=== PATIENT | male | born 1950 | race Caucasian/White ===

== ENCOUNTER 2018-08-12 00:25 | Inpatient (IN) | payer MEDICARE, OTHER ==
[2018-08-11 14:27] LABS: PLATELET COUNT, AUTOMATED 214 K/uL (150-450)
[~2018-08-12] VITALS: Ht 193 cm; Wt 121.1 kg
[2018-08-12] VITALS (14 sets, daily range): BP systolic 113–157; BP diastolic 59–85
[~2018-08-12 00:25] MED LIST: CHOL378P6 PO; HYDR-2966 PO; LEVO125T77 PO; METO25TA93 PO; ceFAZolin(*) 1 GM VIAL 3 GM in NS(*) 0.9% 100 ML BAG 100 ML IVPB ONE
[2018-08-12] MEDS ORDERED: PREGABALIN 150 MG CAPSULE PO ONE (08:25)
[2018-08-12] MEDS ORDERED: NORMOSOL R SOLN(*) 1000 ML BAG 1,000 ML IV PRN (08:25)
[2018-08-12] MEDS ORDERED: ceFAZolin(*) 2GM/D5W 50ML 50 ML IVPB ONE (08:25)
[2018-08-12] MEDS ORDERED: LIDOCAINE/SOD BICARB 8.4% SYR ID ONE (08:25)
[2018-08-12] MEDS ORDERED: MIDAZOLAM 2 MG/2 ML VIAL IVP PRN (08:25)
[2018-08-12] MEDS ORDERED: FAMOTIDINE 20 MG TAB PO ONE (08:25)
[2018-08-12] MEDS ORDERED: ceFAZolin(*) 1 GM VIAL 3 GM in NS(*) 0.9% 100 ML BAG 100 ML IVPB ONE (08:25)
[2018-08-12] MEDS ORDERED: ACETAMINOPHEN 500 MG TAB PO ONE (08:25)
[2018-08-12] MEDS ORDERED: PROPOFOL(*)1000 MG/100 ML VIAL 100 ML ONE (08:34)
[2018-08-12] MEDS ORDERED: ACETAMINOPHEN(*)1000 MG/100 ML 100 ML IVPB ONE (08:34)
[2018-08-12] MEDS ORDERED: LIDOCAINE MPF 1% 5 ML VIAL ONE (09:40)
[2018-08-12] MEDS ORDERED: PROPOFOL EMUL(*) 10MG/ML 20 ML 40 ML ONE (09:40)
[2018-08-12] MEDS ORDERED: ONDANSETRON 4 MG/2 ML VIAL ONE (09:40)
[2018-08-12] MEDS ORDERED: METOCLOPRAMIDE 10 MG/2 ML SDV ONE (09:40)
[2018-08-12] MEDS ORDERED: DEXAMETHASONE SOD 4 MG/ML VIAL ONE (09:43)
[2018-08-12] MEDS ORDERED: SUCCINYLCHOL CHL 200MG/10ML VL ONE (09:43)
[2018-08-12] MEDS ORDERED: fentaNYL CITR 100 MCG/2 ML AMP ONE ×3 (09:44→12:48)
[2018-08-12] MEDS ORDERED: PHENYLEPHRINE 10 MG/1 ML VIAL ONE (10:36)
[2018-08-12] MEDS ORDERED: NS(*) 0.9% 100 ML BAG 100 ML ONE (11:10)
--- NOTE | 2018-08-12 11:59 | RADIOLOGY IMAGING REPORT ---
FACILITY: [facility] PATIENT NAME: Jed Hartley : 1950 MR: [id number] V: [id number] EXAM DATE: ORDERING PHYSICIAN: JANETH DENTON TECHNOLOGIST: Location: [facility] Patient: Jed Hartley : 1950 Visit/Account:[id number] Date of Sevice: 08/12/2018 CERVICAL SPINE 1 VIEW Intraoperative films (two lateral films) FINDINGS: Study demonstrates a surgical probe seen along the inferior anterior endplate of C5. Anterior disc b ridging disc osteophyte seen throughout the cervical spine. Vertebral bodies well-maintained with re spect to height. Prosthetic disc placed at the C5-6 level. IMPRESSION: 1. Intraoperative films as described. Report Dictated By: Master Branch MD at 08/12/2018 11:53 AM Report E-Signed By: Master Branch MD at 08/12/2018 11:55 AM WSN:[email or web address]
[2018-08-12] MEDS ORDERED: NALOXONE HCL 0.4 MG/ML VIAL ONE (12:04)
[2018-08-12] MEDS ORDERED: MAGNESIUM HYDROXIDE* 30ML UDCP PO PRN (12:50)
[2018-08-12] MEDS ORDERED: FLUSH 10 ML SYR IVP PRN (12:50)
[2018-08-12] MEDS ORDERED: HYDROmorphone HCL 2 MG/ML SDV IVP PRN (12:50)
[2018-08-12] MEDS ORDERED: ACETAMINOPHEN 500 MG TAB PO PRN (12:50)
[2018-08-12] MEDS ORDERED: ONDANSETRON 4 MG/2 ML VIAL IVP PRN (12:50)
[2018-08-12] MEDS ORDERED: LR(*) 1000 ML BAG 1,000 ML IV PRN (12:50)
[2018-08-12] MEDS ORDERED: diphenhydrAMINE 25 MG CAP PO PRN (12:50)
[2018-08-12] MEDS ORDERED: BENZOCAINE/MENTHOL 1 EACH LOZG PO PRN (12:50)
[2018-08-12] MEDS ORDERED: BISACODYL 10 MG SUPP PR PRN (12:50)
[2018-08-12] MEDS ORDERED: oxyCODONE HCL 5 MG CAP PO PRN (12:50)
[2018-08-12] MEDS ORDERED: ACETAMINOPHEN(*)1000 MG/100 ML 100 ML IVPB PRN (12:50)
[2018-08-12] MEDS ORDERED: DIAZEPAM 5 MG TAB PO PRN (12:50)
--- NOTE | 2018-08-12 14:32 | Hospitalist Consultation ---
History of Present Illness Requesting Physician Dr. Hendrix Reason for Consult Medical Management Chief Complaint s/p cervical fusion History of Present Illness He was admitted s/p cervical fusion. It is reported the surgery went well and without complication. History Problems: (1) Hypertension Status: Chronic (2) Hypothyroidism Status: Chronic Home Meds Reported Medications Levothyroxine Sodium (SYNTHROID) 125 Mcg Tablet, 1 TAB PO MON, THUR 08/07/18 Cholestyramine (With Sugar) (CHOLESTYRAMINE POWDER) 378 Gm Powder, 378 GM PO DAILY 08/06/18 Metoprolol Tartrate (METOPROLOL TARTRATE) 25 Mg Tablet, 2 TAB PO BID, TAB 08/06/18 Hydrochlorothiazide (HYDROCHLOROTHIAZIDE) 25 Mg Tablet, 1 TAB PO QDAY, TAB 08/06/18 Levothyroxine Sodium (SYNTHROID) 125 Mcg Tablet, 2 TAB PO TWFSS 08/06/18 Allergies: Coded Allergies: NSAIDS (Non-Steroidal Anti-Inflamma (Verified Allergy, Intermediate, BREAKS OUT IN HIVES, 08/12/18) aspirin (Verified Allergy, Intermediate, HIVES, 08/12/18) Patient History: FH: alcoholism MOTHER, FH: lung cancer FATHER, Hx Smoking: Yes (1/2PPD X 10 YRS, QUIT 42 YRS AGO) Smoking Status: Former Smoker Caffeine Intake: Soda Caffeine/Cups Per Day: 1 WEEKLY Hx Alcohol Use: Yes Hx Substance Use Disorder: No Social Drug Use: Never History of IV Drug Use: No Review of Systems All Systems Reviewed/Normal: Yes, Except as Noted Exam Vital Signs Vital Signs Date Time Temp Pulse Resp B/P (MAP) Pulse Ox O2 Delivery O2 Flow Rate FiO2 08/12/18 14:07 84 08/12/18 14:02 Nasal Cannula 2.0 08/12/18 14:00 60 153/80 (104) 08/12/18 13:41 97.8 16 General Appearance: Alert, Awake, No Acute Distress, Afebrile Neuro: No Gross deficits Cardiovascular: Regular Rate and Rhythm Respiratory: No Respiratory Distress, Clear to Auscultation Psych: Alert & Oriented X3, Appropriate Mood & Affect Medical Decision Making Data Points Result Diagram: 08/11/18 5325 Assessment and Plan Problems: (1) S/P cervical spinal fusion Status: Acute Assessment & Plan: Followed by Dr. Hendrix (2) Hypertension Status: Chronic Assessment & Plan: He is on chronic treatment with Metoprolol and Hydrochlorothiazide. The metoprolol has been restarted with hold parameters. (3) Hypothyroidism Status: Chronic Assessment & Plan: He is on chronic treatment with Levothyroxine. Venous Thromboembolism Antithrombotics Is Pt On Any Antithrombotics?: No Exam Sepsis Risk: No Definite Risk Problem Qualifiers (1) Hypertension: Hypertension type: essential hypertension Qualified Codes: I10 - Essential (primary) hypertension JASON ANDERSON Aug 12, 2018 14:32
[2018-08-12] MEDS: CHOLESTYRAMINE 4 GM POWD PO SCH (16:22)
[2018-08-12] MEDS: ceFAZolin 3 GM in NS 0.9% 100 ML BAG IVPB SCH (17:56)
[2018-08-12] MEDS: APAP/HYDROCODONE 325/5 TAB PO PRN ×3 (18:08→23:35)
[2018-08-12] MEDS: METOPROLOL TART 50 MG TAB PO SCH (20:48)
[2018-08-12] MEDS: DOCUSATE SODIUM 100 MG CAP PO SCH (20:48)
[2018-08-12] MEDS ORDERED: LEVOTHYROXINE SOD 0.125 MG TAB PO SCH (21:00)
[2018-08-13] MEDS: ceFAZolin 3 GM in NS 0.9% 100 ML BAG IVPB SCH (02:24)
[2018-08-13 03:21] VITALS: BP 140/77
[2018-08-13] MEDS ORDERED: LEVOTHYROXINE SOD 0.125 MG TAB PO SCH (06:00)
--- NOTE | 2018-08-13 07:36 | OPERATIVE REPORT 1 ---
EVENT DATE: August 12, 2018 SURGEON: Shon Hendrix M.D. ANESTHESIOLOGIST: Vlad Sanon M.D. ANESTHESIA: General endotracheal. LIVESTOCK EXHIBITOR: BENNETT Martino, BESSEMER BOTTOM MAKER PREOPERATIVE DIAGNOSIS Right C6 radiculopathy with right C5-C6 foraminal narrowing. POSTOPERATIVE DIAGNOSIS Right C6 radiculopathy with right C5-6 foraminal narrowing. PROCEDURE PERFORMED C5-C6 anterior cervical diskectomy and fusion. IV FLUIDS 1300 cc. ESTIMATED BLOOD LOSS 30 cc. IMPLANTS USED 1. 8 mm 6-degree lordotic size medium titanium interbody implant from [employer]. 2. 3.5 mm x 14 mm fixation screws from [employer]. SPECIMENS None. DRAINS 10- [place] round Mio-Huerta drain through the neck. COMPLICATIONS None. DISPOSITION Post-Anesthesia Care Unit. INDICATIONS FOR SURGERY Mr. Hartley is a 67-year-old gentleman who presented to my clinic with right sided C6 distribution radicular symptoms. His physical examination was significant for a positive Spurling's maneuver to the right, reproducing symptoms in a C6 nerve root distribution. Muscle strength was decreased in the right biceps at 4+/5 compared to 5/5 on the opposite side. Light touch sensation was subjectively diminished in the thumb of the right hand. Deep tendon reflexes were absent at the right biceps, 1+ at the left biceps and 1+ at bilateral triceps. Imaging studies showed multilevel degenerative disk disease with osteophyte formation, anterior and posterior, as well as disk osteophyte formation causing significant narrowing of the C6 foramen on the right side. Mr. Hartley did not have any improvement with physical therapy, injections or other nonoperative care and was ultimately offered a C5-C6 anterior cervical diskectomy and fusion. He wished to proceed. Prior to surgery, I explained in detail to the patient the possible risks of surgery. These risks include bleeding, infection, damage to surrounding structures, damage to the superior or recurrent laryngeal nerve, damage to the esophagus or trachea with possible need for tube feedings also possible. Other risks include damage to nerve roots, spinal cord, need for further surgery, failure of fusion, , blindness, sexual dysfunction, autonomic nervous system dysfunction and other unforeseen medical and surgical complications. An understanding that spinal surgery is more predictive at improving extremity discomfort than axial spine pain was stressed. DESCRIPTION OF PROCEDURE On the day of surgery, the patient was met in the preoperative hold area and all questions were answered. A final time-out was undertaken by members of the operating team to confirm correct patient, correct levels and correct surgery. The patient was positioned int he supine position on a standard OR bed. All bony protuberances were well padded in the standard fashion. Care was taken to maintain appropriate perfusion pressure during anesthesia. Preoperative antibiotics were administered according to the appropriate timing schedule. At the conclusion of the procedure, sponge and needle counts were correct x2. The patient was prepped and draped in the standard sterile orthopedic fashion. A transverse incision was made over the left side of the anterior cervical spine. Sharp dissection was carried out down to the platysma, which was divided. Finger was used to palpate the carotid pulse and the medial border of the sternocleidomastoid. Finger dissection was carried out medial to the sternocleidomastoid and the carotid sheath coming down on the anterior aspect of the cervical spine. A lateral radiograph was obtained to confirm appropriate spinal level. Soft tissue was then elevated off the anterior cervical spine in a subperiosteal manner including the longus colli muscles. A self-retaining rectractor was placed beneath the longus colli muscles and distracted at the C6- C7 disk space. A microscope was brought into the field. A #15 blade was used to incise the anterior annulus of the C5-C6 disk. Progressively, smaller curettes were then used as well as pituitary rongeurs and Kerrison rongeurs to perform a diskectomy from ventral to dorsal. Once we encountered the posterior annulus and posterior longitudinal ligament, a small forward angle curette was used to tease through those fibers. #1 and #2 Kerrisons were then used to remove the posterior longitudinal ligament and posterior annulus. A Cloward tower hand was placed in the disk space and distracted. There was no change in neurophysiologic monitoring. High speed bur was used to take down the posterior osteophyte on the inferior aspect of the C5 vertebrae. A nerve hook was used to check for adequate decompression of the spinal cord behind the vertebral bodies and adequate decompression of the neural elements out the foramina. Once this was complete and the decompression was satisfactory attention was then turned to the fusion. The end plates of the vertebral bodies above and below the interspace were feathered with a high speed bur. This was to promote bleeding across both bony surfaces. An 8 mm 6-degree lordotic rasp was then placed in the interspace and found to have an excellent fit. The wound was then irrigated with copious sterile saline solution and an 8 mm 6-degree lordotic size medium implant was chosen. This was inserted into the disk space and countersunk about 0.5 mm. the PressFit was excellent. The awl was then used through the integrated holes in the device to puncture the end plates and allow for screw placement. 3.5 mm x 14 mm screws were placed through the device and into the C5 and C6 vertebrae. Excellent purchase was acquired. A lateral radiograph was obtained that confirmed appropriate placement of the implant. The wound was irrigated with sterile saline solution and closed in layers using interrupted sutures for the platysma, inverted interrupted sutures for the subcutaneous tissue and running subcuticular skin stitch. Sponge and needle counts were correct x2. A drain was left deep to the platysma. POSTOPERATIVE CARE PLAN Mr. Hartley will remain in the hospital overnight. He will have his drain removed in the morning and be discharged home. He will follow up with me in two weeks for wound check and examination. CIARA
[2018-08-13 08:05] VITALS: BP 125/61
[2018-08-13] MEDS: METOPROLOL TART 50 MG TAB PO SCH (08:07)
[2018-08-13] MEDS: DOCUSATE SODIUM 100 MG CAP PO SCH (08:07)
[2018-08-13] MEDS: APAP/HYDROCODONE 325/5 TAB PO PRN (08:07)
[2018-08-13] MEDS ORDERED: DOCU240C84 PO (08:25)
[2018-08-13] MEDS ORDERED: LOR5/325 PO (08:26)
--- NOTE | 2018-08-13 09:03 | Hospitalist Progress Note ---
Subjective Progress Notes Subjective He has no complaints this morning. He had no acute events overnight. Patient Complains of: Cardiovascular: No: Chest Pain Respiratory: No: Shortness of Breath Physical Exam Vital Signs Date Time Temp Pulse Resp B/P (MAP) Pulse Ox O2 Delivery O2 Flow Rate FiO2 08/13/18 08:15 94 Room Air 08/13/18 08:05 98.8 54 14 125/61 (82) 08/13/18 03:21 2.0 Intake and Output 08/13/18 00:59 Intake Total 4740 ml Output Total 1725 ml Balance 3015 ml Intake Oral 1340 ml IV Total 1750 ml Other 1650 ml Output Urine Total 1660 ml Drainage Total 45 ml Other 20 ml # Voids 5 General Appearance: Alert, Awake, No Acute Distress, Afebrile Neuro: No Gross deficits Cardiovascular: Regular Rate and Rhythm Respiratory: No Respiratory Distress, Clear to Auscultation GI: Soft and Non-Tender Extremities: No Edema Psych: Alert & Oriented X3, Appropriate Mood & Affect Result Diagram: 08/11/18 2225 Assessment and Plan Problems: (1) S/P cervical spinal fusion Status: Acute Assessment & Plan: Followed by Dr. Hendrix (2) Hypertension Status: Chronic Assessment & Plan: He is on chronic treatment with Metoprolol and Hydrochlorothiazide. The metoprolol has been restarted with hold parameters. He will hold Hydrochlorothiazide for 3-5 days. He reports he always checks his blood pressure and pulse before he takes any of his medications. He will continue Metoprolol with parameters set by his PCP. (3) Hypothyroidism Status: Chronic Assessment & Plan: He is on chronic treatment with Levothyroxine. Exam Sepsis Risk: No Definite Risk Problem Qualifiers (1) Hypertension: Hypertension type: essential hypertension Qualified Codes: I10 - Essential (primary) hypertension JASON ANDERSON LOSS PREVENTION AND SAFETY MANAGER Aug 13, 2018 09:03
[2018-08-13] MEDS: CHOLESTYRAMINE 4 GM POWD PO SCH (09:05)
[2018-08-15] MEDS ORDERED: LEVOTHYROXINE SOD 0.125 MG TAB PO SCH (06:00)
== END 2018-08-13 09:15 | disposition home or self-care (01) | DRG 473 ==
LOC: OR 00:25 → MED 13:36
PROVIDERS: ADMIT Orthopaedic Surgery; ATTEND Orthopaedic Surgery
PROC: 0RT30ZZ Resection of Cervical Vertebral Disc, Open Approach (ICD-10-PCS; 2018-08-12)
PROC: 0RG10J0 Fusion of Cervical Vertebral Joint with Synthetic Substitute, Anterior Approach, Anterior Column, Open Approach (ICD-10-PCS; principal; 2018-08-12 09:25)
DX: M50.122 Cervical disc disorder at C5-C6 level with radiculopathy (principal); M25.78 Osteophyte, vertebrae; M48.02 Spinal stenosis, cervical region; I10 Essential (primary) hypertension; E03.9 Hypothyroidism, unspecified; Z88.8 Allergy status to other drugs, medicaments and biological substances; Z90.49 Acquired absence of other specified parts of digestive tract; Z86.718 Personal history of other venous thrombosis and embolism; Z87.891 Personal history of nicotine dependence
CPT/HCPCS: 36415; 72020; 85025; 86850; 86900; 86901; 97161; C1713; J0131; J0330; J0690; J1100; J2001; J2310; J2370; J2405; J2704; J2765; J3010; J7050